=== PATIENT | male | born 1950 | race Two or more races ===

== ENCOUNTER 2016-11-27 06:22 | Inpatient (IN) | payer OTHER ==
[2016-11-23 09:47] LABS: Eosinophils % (auto) 2.1 % (0.0-7.0); Lymphocytes % (auto) 24.8 % (10.0-50.0); Monocytes % (auto) 9.9 % (0.0-12.0); Neutrophils % (auto) 62.6 % (37.0-80.0); White Blood Cell 4.5 10^3/uL (4.4-10.8)
[2016-11-23 09:48] LABS: Basophils # (auto) 0 uL; Basophils % (auto) 0.6 % (0.0-2.0); CONDITION Y; Eosinophils # (auto) 0.1 uL; Hematocrit 43.4 % (41.0-53.0); Hemoglobin 15.1 g/dL (13.5-17.5); Lymphocytes # (auto) 1.1 uL; Mean Corpuscular Hemoglobin 34.6 pg (28.0-32.0); Mean Corpuscular Hgb Conc. 34.7 g/dL (32.0-36.0); Mean Corpuscular Volume 99.6 fL (80.0-100.0); Mean Platelet Volume 8.9 fL (7.4-10.4); Monocytes # (auto) 0.4 uL; Neutrophils # (auto) 2.8 uL; Platelet Count (auto) 196 10^3/uL (140-450); Red Cell Distribution Width 13.9 % (11.6-16.0)
[2016-11-23 09:54] LABS: Urine Bilirubin Negative (Negative); Urine Blood Negative /uL (Negative); Urine Color Yellow (Yellow); Urine Glucose Normal (Normal); Urine Ketone Negative (Negative); Urine Nitrite Negative (Negative); Urine RBC 1 /hpf (0 - 3); Urine Squamous Epithelial Cell FEW /hpf (<5); Urine pH 6.5 (5.0-8.0)
[2016-11-23 10:02] LABS: INR 1.01 (0.9-1.15); Partial Thromboplastin Time 27.1 sec (22.64-33.71)
[2016-11-23 10:14] LABS: Calcium 9.1 mg/dL (8.5-10.1); Potassium 4.2 mmol/L (3.5-5.1)
[~2016-11-27] VITALS: Ht 170.2 cm; Wt 97.0 kg
[~2016-11-27 06:22] MED LIST: AMLO5TAB2 PO; ATOR20TA50 PO; LOSA100T27 PO; METF-370 PO; OMEP20CA74 PO
[2016-11-27] MEDS ORDERED: LIDOCAINE W/ EPINEPHRINE 1 % INJ 30ML ONE (06:33)
[2016-11-27] MEDS ORDERED: BUPIVACAINE 0.25% INJ 50ML VIAL ONE (06:34)
[2016-11-27] MEDS ORDERED: ceFOXitin 2GM/100ML D5W 100 ML IV ONE (06:58)
[2016-11-27] MEDS ORDERED: fentaNYL CITRATE 100 MCG/2 ML VL ONE ×2 (07:32→10:34)
[2016-11-27] MEDS ORDERED: MIDAZOLAM HCL 1MG/1ML-2 ML VIAL ONE (07:32)
[2016-11-27] MEDS ORDERED: ROCURONIUM 10MG/ML 10ML VIAL IV ONE (07:34)
[2016-11-27] MEDS ORDERED: PROPOFOL 10 MG/ML 20 ML IV ONE (07:34)
[2016-11-27] MEDS ORDERED: LABETALOL HCL 5 MG/ML 4ML SYRINGE IV PRN (10:00)
[2016-11-27] MEDS ORDERED: ONDANSETRON HCL 4 MG/2 ML VIAL IV ONE (10:00)
[2016-11-27] MEDS ORDERED: ACCU-CHEK COMFORT CURVE STRIP VI ONE (10:00)
[2016-11-27] MEDS ORDERED: fentaNYL CITRATE 100 MCG/2 ML VL IV PRN (10:00)
[2016-11-27] MEDS ORDERED: METOCLOPRAMIDE HCL 5MG/ml INJ 2ml VIAL ONE (10:22)
[2016-11-27] MEDS ORDERED: NEOSTIGMINE 1 MG/ML INJ (10mg/10ML VIAL) ONE (10:22)
[2016-11-27] MEDS ORDERED: GLYCOPYRROLATE 0.2 MG/ML 1ML VIAL ONE (10:23)
[2016-11-27] MEDS ORDERED: ONDANSETRON HCL 4 MG/2 ML VIAL ONE (10:23)
[2016-11-27] MEDS: SOD CHL 0.45% 1,000 ML IV SCH ×2 (10:48→18:03)
[2016-11-27] MEDS ORDERED: diphenhdrAMINE HCL 50 MG/1 ML VL IV PRN (11:00)
[2016-11-27] MEDS: HYDROmorphone HCL 2 MG/ML VL IV PRN ×6 (11:00→21:58)
[2016-11-27] MEDS ORDERED: DEXTROSE (50%) 50ML SYRG IV PRN (11:00)
[2016-11-27] MEDS: ACCU-CHEK COMFORT CURVE STRIP VI SCH ×3 (13:24→21:48)
[2016-11-27] MEDS: InsuLIN REG 1unit/0.01ml Soln (100units/ml) SC SCH ×3 (13:24→21:48)
[2016-11-27 13:42] VITALS: BP 120/72
[2016-11-27] MEDS: CEFOXITIN SODIUM 1 GM in D5W 5% 50 ML IV SCH ×2 (15:30→21:58)
[2016-11-27] MEDS: metFORMIN HYDROCHLORIDE 500 MG TAB PO SCH (16:45)
[2016-11-27 17:00] VITALS: BP 116/69
[2016-11-27] MEDS: ACETAMINOPHEN/CODEINE#3 (300/30mg) TAB PO PRN (18:12)
[2016-11-27] MEDS: ATORVASTATIN 20 MG TAB PO SCH (21:48)
[2016-11-27 22:02] VITALS: BP 120/71
[2016-11-28] VITALS (7 sets, daily range): BP systolic 91–128; BP diastolic 46–66
[2016-11-28] MEDS: SOD CHL 0.45% 1,000 ML IV SCH (00:58)
[2016-11-28] MEDS: HYDROmorphone HCL 2 MG/ML VL IV PRN ×3 (03:12→16:25)
[2016-11-28] MEDS: CEFOXITIN SODIUM 1 GM in D5W 5% 50 ML IV SCH ×3 (05:20→23:00)
[2016-11-28] MEDS: metFORMIN HYDROCHLORIDE 500 MG TAB PO SCH ×2 (05:20→16:33)
[2016-11-28] MEDS: InsuLIN REG 1unit/0.01ml Soln (100units/ml) SC SCH ×4 (05:20→22:21)
[2016-11-28] MEDS: ACCU-CHEK COMFORT CURVE STRIP VI SCH ×4 (05:21→22:11)
[2016-11-28 06:36] LABS: BUN/Creatinine Ratio 7.3; Calcium 7.8 mg/dL (8.5-10.1); Potassium 4.1 mmol/L (3.5-5.1)
[2016-11-28] MEDS: SODIUM CHLORIDE 0.9% 1,000 ML IV SCH ×2 (07:58→16:22)
[2016-11-28] MEDS: FOLIC ACID 1 MG TAB PO SCH (09:35)
[2016-11-28] MEDS: THIAMINE HCL 100 MG TAB PO SCH (09:35)
[2016-11-28] MEDS: amLODIPine BESYLATE 5 MG TAB PO SCH (09:36)
[2016-11-28] MEDS: LOSARTAN POTASSIUM 50 MG TAB PO SCH (09:36)
[2016-11-28] MEDS: PANTOPRAZOLE 40 MG TAB PO SCH (09:36)
[2016-11-28] MEDS ORDERED: OMEPRAZOLE 20MG/10ML ORAL SUSP PO SCH (10:00)
[2016-11-28] MEDS ORDERED: PATIENTS OWN MEDICATION (Losartan Potassium 100 MG) PO SCH (10:00)
[2016-11-28] MEDS: ONDANSETRON HCL 4 MG/2 ML VIAL IV PRN (16:25)
[2016-11-28] MEDS: ATORVASTATIN 20 MG TAB PO SCH (22:27)
[2016-11-28] MEDS: ACETAMINOPHEN/CODEINE#3 (300/30mg) TAB PO PRN (22:27)
[2016-11-29] VITALS (7 sets, daily range): BP systolic 101–134; BP diastolic 47–73
[2016-11-29] MEDS: HYDROmorphone HCL 2 MG/ML VL IV PRN (01:55)
[2016-11-29] MEDS: SODIUM CHLORIDE 0.9% 1,000 ML IV SCH (05:40)
[2016-11-29] MEDS: metFORMIN HYDROCHLORIDE 500 MG TAB PO SCH (06:35)
[2016-11-29] MEDS: ACCU-CHEK COMFORT CURVE STRIP VI SCH ×2 (06:36→11:29)
[2016-11-29] MEDS: InsuLIN REG 1unit/0.01ml Soln (100units/ml) SC SCH ×2 (06:36→11:29)
[2016-11-29] MEDS: CEFOXITIN SODIUM 1 GM in D5W 5% 50 ML IV SCH ×2 (06:45→15:48)
[2016-11-29] MEDS: amLODIPine BESYLATE 5 MG TAB PO SCH (09:37)
[2016-11-29] MEDS: FOLIC ACID 1 MG TAB PO SCH (09:37)
[2016-11-29] MEDS: LOSARTAN POTASSIUM 50 MG TAB PO SCH (09:37)
[2016-11-29] MEDS: THIAMINE HCL 100 MG TAB PO SCH (09:37)
[2016-11-29] MEDS: PANTOPRAZOLE 40 MG TAB PO SCH (09:37)
[2016-11-29] MEDS: ONDANSETRON HCL 4 MG/2 ML VIAL IV PRN ×2 (09:39→10:42)
[2016-11-29] MEDS ORDERED: PROMETHAZINE HCL 25 MG/ML 1ML IV PRN (11:30)
[2016-11-29] MEDS ORDERED: PROMETHAZINE HCL 25 MG/ML 1ML ONE (11:34)
== END 2016-11-29 17:16 | disposition home or self-care (01) | DRG 708 ==
LOC: SUR 06:22 → TELE-EAST 06:23 → EAST 13:28
PROVIDERS: ADMIT Urology; ATTEND Urology
PROC: 0VT34ZZ Resection of Bilateral Seminal Vesicles, Percutaneous Endoscopic Approach (ICD-10-PCS; 2016-11-27)
PROC: 0TQC4ZZ Repair Bladder Neck, Percutaneous Endoscopic Approach (ICD-10-PCS; 2016-11-27)
PROC: 07BC4ZZ Excision of Pelvis Lymphatic, Percutaneous Endoscopic Approach (ICD-10-PCS; 2016-11-27)
PROC: 0VBQ4ZZ Excision of Bilateral Vas Deferens, Percutaneous Endoscopic Approach (ICD-10-PCS; 2016-11-27)
PROC: 8E0W4CZ Robotic Assisted Procedure of Trunk Region, Percutaneous Endoscopic Approach (ICD-10-PCS; 2016-11-27)
PROC: 0VT04ZZ Resection of Prostate, Percutaneous Endoscopic Approach (ICD-10-PCS; principal; 2016-11-27 07:36)
DX: C61 Malignant neoplasm of prostate (principal); E66.01 Morbid (severe) obesity due to excess calories; I10 Essential (primary) hypertension; E11.9 Type 2 diabetes mellitus without complications; E78.5 Hyperlipidemia, unspecified; K21.9 Gastro-esophageal reflux disease without esophagitis; G89.29 Other chronic pain; M54.9 Dorsalgia, unspecified; F10.10 Alcohol abuse, uncomplicated; Z79.899 Other long term (current) drug therapy; Z82.49 Family history of ischemic heart disease and other diseases of the circulatory system; Z85.46 Personal history of malignant neoplasm of prostate; Z83.3 Family history of diabetes mellitus; Z68.33 Body mass index [BMI] 33.0-33.9, adult
CPT/HCPCS: 36415; 80048; 81001; 82962; 85025; 85610; 85730; 86850; 86900; 86901; 87086; J0694; J1815; J2250; J2405; J2704; J3490; J7060

== ENCOUNTER 2016-11-30 17:24 | Inpatient (IN) | payer OTHER ==
[~2016-11-30] VITALS: Ht 170.2 cm; Wt 89.2 kg
[2016-11-30 18:07] LABS: Basophils # (auto) 0 uL; Basophils % (auto) 0.1 % (0.0-2.0); CONDITION Y; Eosinophils # (auto) 0.1 uL; Eosinophils % (auto) 2.4 % (0.0-7.0); Hematocrit 42.1 % (41.0-53.0); Hemoglobin 14.1 g/dL (13.5-17.5); Lymphocytes # (auto) 0.4 uL; Lymphocytes % (auto) 8.4 % (10.0-50.0); Mean Corpuscular Hemoglobin 33.9 pg (28.0-32.0); Mean Corpuscular Hgb Conc. 33.5 g/dL (32.0-36.0); Mean Corpuscular Volume 101.2 fL (80.0-100.0); Mean Platelet Volume 9.8 fL (7.4-10.4); Monocytes # (auto) 0.4 uL; Monocytes % (auto) 8.5 % (0.0-12.0); Neutrophils # (auto) 4.1 uL; Neutrophils % (auto) 80.6 % (37.0-80.0); Platelet Count (auto) 194 10^3/uL (140-450); Red Cell Distribution Width 13.2 % (11.6-16.0); White Blood Cell 5.1 10^3/uL (4.4-10.8)
[2016-11-30 18:42] LABS: Albumin 3.2 g/dL (3.4-5.0); BUN/Creatinine Ratio 11.8; Bilirubin, Total 2.9 mg/dL (0.2-1.0); Calcium 8.7 mg/dL (8.5-10.1); Potassium 4.2 mmol/L (3.5-5.1); Total Protein 7.1 g/dL (6.4-8.2)
[2016-11-30 19:49] LABS: Urine Bilirubin Negative (Negative); Urine Blood 2+ /uL (Negative); Urine Color Yellow (Yellow); Urine Glucose Normal (Normal); Urine Ketone 1+ (Negative); Urine Mucus FEW (None Seen); Urine Nitrite Negative (Negative); Urine RBC 241 /hpf (0 - 3)
[2016-11-30] MEDS ORDERED: TEMAZEPAM 15 MG CAP PO PRN (21:30)
[2016-11-30] MEDS ORDERED: cefTRIAXone 1GM/50ML D5W 50 ML IV ONE (21:30)
[2016-11-30] MEDS ORDERED: LACTULOSE 20Gm/30ML SOLN PO ONE (21:30)
[2016-11-30] MEDS ORDERED: ACETAMINOPHEN 500 MG TAB PO PRN (21:30)
[2016-11-30] MEDS ORDERED: DEXTROSE (50%) 50ML SYRG IV PRN (21:30)
[2016-11-30] MEDS ORDERED: HYDROcodone-ACET 5/325MG TAB PO PRN (21:30)
[2016-11-30] MEDS ORDERED: ONDANSETRON HCL 4 MG/2 ML VIAL IV PRN (21:30)
[2016-11-30] MEDS ORDERED: LORazepam 0.5 MG TAB PO PRN (21:30)
[2016-11-30] MEDS ORDERED: LACTULOSE 20Gm/30ML SOLN PO PRN (21:30)
[2016-11-30] MEDS ORDERED: MORPHINE SULF INJ 2 MG/ML SYRINGE 1ML IV PRN (21:30)
[2016-11-30 22:25] VITALS: BP 130/78
[2016-11-30] MEDS ORDERED: SIMETHICONE 80 MG CHEWABLE TABLET PO PRN (22:45)
[2016-11-30] MEDS: InsuLIN REG 1unit/0.01ml Soln (100units/ml) SC SCH (23:00)
[2016-11-30] MEDS: ATORVASTATIN 20 MG TAB PO SCH (23:03)
[2016-11-30] MEDS: ACCU-CHEK COMFORT CURVE STRIP VI SCH (23:09)
[2016-12-01 05:00] VITALS: BP 125/81
[2016-12-01 06:31] LABS: Basophils # (auto) 0 uL; Basophils % (auto) 0.2 % (0.0-2.0); CONDITION Y; Eosinophils # (auto) 0.3 uL; Eosinophils % (auto) 4.9 % (0.0-7.0); Hematocrit 38.4 % (41.0-53.0); Hemoglobin 13.1 g/dL (13.5-17.5); Lymphocytes % (auto) 18.3 % (10.0-50.0); Mean Corpuscular Hemoglobin 34.3 pg (28.0-32.0); Mean Corpuscular Hgb Conc. 34.2 g/dL (32.0-36.0); Mean Corpuscular Volume 100.2 fL (80.0-100.0); Mean Platelet Volume 9.4 fL (7.4-10.4); Monocytes # (auto) 0.7 uL; Monocytes % (auto) 12.7 % (0.0-12.0); Neutrophils # (auto) 3.3 uL; Neutrophils % (auto) 63.9 % (37.0-80.0); Platelet Count (auto) 202 10^3/uL (140-450); Red Cell Distribution Width 13.2 % (11.6-16.0); White Blood Cell 5.2 10^3/uL (4.4-10.8)
[2016-12-01] MEDS: ACCU-CHEK COMFORT CURVE STRIP VI SCH ×4 (06:55→21:20)
[2016-12-01] MEDS: InsuLIN REG 1unit/0.01ml Soln (100units/ml) SC SCH ×4 (06:55→21:20)
[2016-12-01 07:20] LABS: Albumin 2.9 g/dL (3.4-5.0); BUN/Creatinine Ratio 10.2; Bilirubin, Total 4.3 mg/dL (0.2-1.0); Calcium 8.2 mg/dL (8.5-10.1); Potassium 4.1 mmol/L (3.5-5.1); Total Protein 6.7 g/dL (6.4-8.2)
[2016-12-01] MEDS ORDERED: HYDROmorphone HCL 2 MG/ML VL IV PRN (08:15)
[2016-12-01 09:00] VITALS: BP 146/78
[2016-12-01] MEDS ORDERED: cefTRIAXone 1GM/50ML D5W 50 ML IV SCH (09:00)
[2016-12-01] MEDS: DOCUSATE SOD 100 MG CAP PO SCH ×2 (09:41→21:16)
[2016-12-01] MEDS ORDERED: FOLIC ACID 1 MG TAB PO SCH (10:00)
[2016-12-01] MEDS ORDERED: LOSARTAN POTASSIUM 50 MG TAB PO SCH (10:00)
[2016-12-01] MEDS ORDERED: amLODIPine BESYLATE 5 MG TAB PO SCH (10:00)
[2016-12-01] MEDS ORDERED: THIAMINE HCL 100 MG TAB PO SCH (10:00)
[2016-12-01 13:00] VITALS: BP 152/87
[2016-12-01 17:00] VITALS: BP 157/73
[2016-12-01] MEDS: ATORVASTATIN 20 MG TAB PO SCH (21:16)
[2016-12-03 12:37] LABS: Hepatitis B Surface Antibody Negative
[2016-12-05 08:06] LABS: EBV Ab VCA IgG Antibody 23.3 U/mL (0.0-17.9); EBV Ab VCA IgM Antibody <36.0 U/mL (0.0-35.9); EBV Early Antigen IgG Antibody <9.0 U/mL (0.0-8.9)
[2016-12-05 18:07] LABS: HSV 1&2 IgM Antibody <0.91 Ratio (0.00-0.90)
== END 2016-12-01 21:26 | disposition short-term general hospital (02) | DRG 690 ==
LOC: EDBD 17:24 → ER 17:30 → CENTRAL 17:31
PROVIDERS: ADMIT Nurse Practitioner Family; ATTEND Family Medicine
DX: N39.0 Urinary tract infection, site not specified (principal); E11.22 Type 2 diabetes mellitus with diabetic chronic kidney disease; K76.0 Fatty (change of) liver, not elsewhere classified; B17.9 Acute viral hepatitis, unspecified; N12 Tubulo-interstitial nephritis, not specified as acute or chronic; N18.9 Chronic kidney disease, unspecified; I12.9 Hypertensive chronic kidney disease with stage 1 through stage 4 chronic kidney disease, or unspecified chronic kidney disease; E11.65 Type 2 diabetes mellitus with hyperglycemia; E78.5 Hyperlipidemia, unspecified; F10.20 Alcohol dependence, uncomplicated; E66.9 Obesity, unspecified; R74.0 Nonspecific elevation of levels of transaminase and lactic acid dehydrogenase [LDH]; K59.00 Constipation, unspecified; K80.20 Calculus of gallbladder without cholecystitis without obstruction; Z79.899 Other long term (current) drug therapy; Z85.46 Personal history of malignant neoplasm of prostate; Z79.84 Long term (current) use of oral hypoglycemic drugs; Z90.89 Acquired absence of other organs; Z82.3 Family history of stroke; Z68.30 Body mass index [BMI] 30.0-30.9, adult; Z90.79 Acquired absence of other genital organ(s)
CPT/HCPCS: 36415; 71010; 74176; 76705; 80053; 81001; 82150; 82728; 82784; 82962; 83690; 85025; 86038; 86664; 86704; 86705; 86706; 86708; 86709; 86803; 87081; 87086; 87340; 96374; 96376; J0696